=== PATIENT | female | born 1975 | race Caucasian/White ===

== ENCOUNTER 2017-12-18 18:24 | Emergency (ER) | payer BC ==
[2017-12-18 18:42] VITALS: BP 119/82
--- NOTE | 2017-12-18 19:17 | RAD ---
INDICATION: Left shoulder injury COMPARISON: None TECHNIQUE: Routine frontal, Y and axial views were obtained. FINDINGS: The bony structures, joint spaces, and soft tissues are normal for age. IMPRESSION: NEGATIVE EXAMINATION.
--- NOTE | 2017-12-18 19:25 | UC ---
Shoulder Pain HPI - HPI Summary HPI Summary: The patient is a 42-year-old female that injured her left shoulder about 3 days ago he states she fell off a deck. The fall was about 4 feet. She landed on her left shoulder. She is right handed. She has pain if she tries to ABduct her left arm. She has pain over her distal left clavicle. Denies any head injury or neck injury. - History of Current Complaint Chief Complaint: UCUpperExtremity Stated Complaint: LEFT SHOULDER Time Seen by Provider: 12/18/17 18:37 Hx Obtained From: Patient Hx Last Menstrual Period: 11/21/17 Onset/Duration: Sudden Onset Timing: Constant Severity Initially: Severe Severity Currently: Severe Location Of Pain: Is Discrete @ Pain Intensity: 8 Pain Scale Used: 0-10 Numeric Character: Sharp, Aching Aggravating Factor(s): Movement, Lifting, Flexion Alleviating Factor(s): Rest Associated Signs And Symptoms: Positive: Swelling Related History: Dominant Hand Right - Allergies/Home Medications Allergies/Adverse Reactions: Allergies Allergy/AdvReac Type Severity Reaction Status Date / Time No Known Allergies Allergy Verified 12/18/17 18:34 Home Medications: Home Medications BuPROPion XL* [Bupropion XL*] 1 tab DAILY 12/18/17 [History Confirmed 12/18/17] PMH/Surg Hx/FS Hx/Imm Hx Previously Healthy: Yes - Surgical History Surgical History: Yes Surgery Procedure, Year, and Place: Colon resection, 2008 - Family History Known Family History: Positive: Hypertension - Social History Alcohol Use: Occasionally Substance Use Type: None Smoking Status (MU): Never Smoked Tobacco Review of Systems Constitutional: Negative Skin: Negative Eyes: Negative ENT: Negative Respiratory: Negative Cardiovascular: Negative Gastrointestinal: Negative Genitourinary: Negative Motor: Negative Neurovascular: Negative Musculoskeletal: Arthralgia Neurological: Negative Psychological: Negative Is Patient Immunocompromised?: No All Other Systems Reviewed And Are Negative: Yes Physical Exam Triage Information Reviewed: Yes Appearance: Well-Appearing, No Pain Distress, Well-Nourished Vital Signs: Initial Vital Signs Temp 98.4 F 12/18/17 18:35 Pulse 72 12/18/17 18:35 Resp 16 12/18/17 18:35 BP 119/82 12/18/17 18:35 Pulse Ox 100 12/18/17 18:35 Vital Signs Reviewed: Yes Eyes: Positive: Conjunctiva Clear ENT: Positive: Hearing grossly normal, Uvula midline. Negative: Pharyngeal erythema, Nasal congestion, Trismus, Muffled voice, Hoarse voice Neck: Positive: Supple, Nontender, No Lymphadenopathy Respiratory: Positive: Lungs clear, Normal breath sounds, No respiratory distress, No accessory muscle use Cardiovascular: Positive: RRR, No Murmur Musculoskeletal: Positive: ROM Limited @ - left shoulder Neurological: Positive: Alert Psychological Exam: Normal Skin Exam: Normal Diagnostics - Radiology No standard instances Xray Interpretation: No Acute Changes Radiology Interpretation Completed By: Radiologist Shoulder Course/Dx - Differential Dx/Diagnosis Provider Diagnoses: left AC joint separation. ? partial rotator cuff tear (L) Discharge - Sign-Out/Discharge Documenting (check all that apply): Patient Departure - Discharge Plan Condition: Stable Disposition: HOME Patient Education Materials: Shoulder Sprain (ED) Referrals: Emigdio Tafoya MD [Medical Doctor] - As Soon As Possible Additional Instructions: sling ice ibuprofen I suspect an AC joint separation There is some concern you may have partially torn your rotator cuff You should see an orthopedist in follow up - Billing Disposition and Condition Condition: STABLE Disposition: Home Images Front/Back of Body, Lg ([place]): 1 - tender/swollen left ACjoint
== END 2017-12-18 19:52 | disposition home or self-care (01) ==
LOC: UCCORT 18:24
DX: S43.102A Unspecified dislocation of left acromioclavicular joint, initial encounter (principal); W17.89XA Other fall from one level to another, initial encounter; Y93.9 Activity, unspecified; Y92.008 Other place in unspecified non-institutional (private) residence as the place of occurrence of the external cause
CPT/HCPCS: 99203; G0463